=== PATIENT | female | born 1980 | race Caucasian/White ===

== ENCOUNTER → 2018-06-14 | Outpatient (CLI) | payer BC ==
--- NOTE | 2018-06-14 11:49 | Diagnostic Imaging Report ---
PROCEDURE: CT urinary tract, rule out kidney stone. TECHNIQUE: Multiple contiguous axial images were obtained through the abdomen and pelvis without the use of intravenous contrast. INDICATION: Left posterior pain and hematuria. COMPARISON: No prior studies are available for comparison. FINDINGS: The lung bases are clear. The liver and gallbladder are unremarkable. No biliary ductal dilatation is seen. The pancreas and spleen are unremarkable. No adrenal mass is detected. No renal calculi are seen. The left ureter is prominent and appears to contain a 4 mm calculus distally just proximal to the UVJ. Pelvic phleboliths are present as well. The right ureter is unremarkable. The small and large bowel loops are of normal caliber. The appendix is unremarkable. There is no ascites. The uterus is unremarkable. IMPRESSION: There is a 4 mm distal left ureteric calculus producing mild hydroureteronephrosis. No other significant abnormality is detected. Dictated by: Dictated on workstation # [id number]
== END ==
LOC: RAD 10:29
PROVIDERS: ATTEND Nurse Practitioner Family
DX: N13.2 Hydronephrosis with renal and ureteral calculous obstruction (principal)
CPT/HCPCS: 74176

== ENCOUNTER → 2018-06-20 | Outpatient (CLI) | payer BC ==
--- NOTE | 2018-06-20 17:19 | Diagnostic Imaging Report ---
INDICATION: Left ureteral calculus EXAM: KUB at 1:38 PM FINDINGS: There are several round calcifications in the pelvis that resemble phleboliths. There is 1 at the left ureterovesical junction that is less defined and could be a calculus. IMPRESSION: I suspect a small calculus at the left ureterovesical junction. The stone measures approximately 3 mm in diameter. Dictated by: Dictated on workstation # [id number]
== END ==
LOC: RAD 13:29
PROVIDERS: ATTEND Urology
DX: N20.1 Calculus of ureter (principal)
CPT/HCPCS: 74018

== ENCOUNTER → 2018-07-11 | Outpatient (CLI) | payer BC ==
--- NOTE | 2018-07-11 14:29 | Diagnostic Imaging Report ---
PROCEDURE: CT abdomen and pelvis without contrast. TECHNIQUE: Multiple contiguous axial images were obtained through the abdomen and pelvis without the use of intravenous contrast. Auto Exposure Controls were utilized during the CT exam to meet ALARA standards for radiation dose reduction. INDICATION: Left ureteral stone. CORRELATION STUDY: 06/14/2018 FINDINGS: LOWER THORAX: Clear. LIVER: Unremarkable. GALLBLADDER: Present and unremarkable. No bile duct dilatation. SPLEEN: Unremarkable. PANCREAS: Unremarkable. ADRENAL GLANDS: Unremarkable. KIDNEYS: There has been slight interval migration of the somewhat bilobed or perhaps two adjacent stones. These are now located at the ureterovesicular junction. Left renal collecting system is only very mildly prominent but without overt hydronephrosis at followup. The remainder of the left kidney as well as right kidney and collecting system are unremarkable. ABDOMINAL AORTA: Unremarkable, nonaneurysmal. GASTROINTESTINAL TRACT: Moderate severity fecal retention. Normal appendix. URINARY BLADDER: Unremarkable. REPRODUCTIVE: 3 cm low-density mass in the left ovary is present. Trace amount of pelvic fluid. OSSEOUS STRUCTURES: No acute abnormality. OTHER: None. IMPRESSION: 1. Slight interval migration of the distal left ureteral calculus now located at the left UVJ. No significant hydroureteronephrosis. 2. Development of a left ovarian cyst, 3 cm in size. Trace amount of pelvic fluid. Findings likely physiologic. Dictated by: Dictated on workstation # [id number]
== END ==
LOC: RAD 09:42
PROVIDERS: ATTEND Urology
DX: N20.1 Calculus of ureter (principal); N83.202 Unspecified ovarian cyst, left side
CPT/HCPCS: 74176

== ENCOUNTER 2018-07-17 06:27 | Outpatient (CLI) | payer BC ==
[~2018-07-17] VITALS: Ht 167.6 cm; Wt 74.8 kg
[2018-07-18] MEDS ORDERED: PHEN-640 PO (10:10)
[2018-07-18] MEDS ORDERED: NITR-65 PO (10:10)
[2018-07-18] MEDS ORDERED: TAMS0.4C98 PO (10:10)
== END 2018-07-17 11:55 | disposition home or self-care (01) ==
LOC: PREOP 06:27
PROVIDERS: ATTEND Urology
DX: Z01.818 Encounter for other preprocedural examination (principal)

== ENCOUNTER 2018-07-18 06:07 | Day surgery (SDC) | payer BC ==
[~2018-07-18] VITALS: Ht 167.6 cm; Wt 76.4 kg
[2018-07-18] MEDS ORDERED: cefTRIAXone FOR IV USE 1,000 MG in WATER (STERILE) FOR INJECTION 10 ML IV ONE (06:30)
[2018-07-18] MEDS: LACTATED RINGERS 1,000 ML IV PRN ×2 (06:35→07:53)
[2018-07-18 06:42] VITALS: BP 117/56
[2018-07-18] MEDS ORDERED: CATHETER FLUSH 10 ML SYR IV PRN (06:45)
[2018-07-18] MEDS ORDERED: proPOfol 200 MG/20 ML (DIPRIVAN) VIAL IV ONE (06:53)
[2018-07-18] MEDS ORDERED: fentaNYL INJECTION 100 MCG/2 ML AMP ONE (06:53)
[2018-07-18] MEDS ORDERED: ONDANSETRON 4 MG/2 ML (SDV) Z0FRAN ONE (06:53)
[2018-07-18] MEDS ORDERED: DEXAMETHASONE 10 MG/ML (DECADRON) 1 ML VIAL ONE (06:53)
[2018-07-18] MEDS ORDERED: LIDOCAINE PF 2% 5 ML (XYLOCAINE) VIAL ONE (06:53)
[2018-07-18] MEDS ORDERED: MIDAZOLAM 2 MG/2 ML (VERSED) VIAL ONE (06:54)
[2018-07-18] MEDS ORDERED: FUROSEMIDE 40 MG/4 ML INJ (LASIX) ONE (06:54)
[2018-07-18] MEDS ORDERED: KETOROLAC 30 MG/ML VIAL ONE (06:54)
[2018-07-18] MEDS ORDERED: SEVOFLURANE (ULTANE) 15 ML INHAL SOLN ONE (07:01)
--- NOTE | 2018-07-18 07:03 | Progress Note-Pre Operative ---
Pre-Operative Progress Note H&P Reviewed The H&P was reviewed, patient examined and no changes noted. Date Seen by Provider: Jul 18, 2018 Time Seen by Provider: 07:02 Date H&P Reviewed: Jul 18, 2018 Time H&P Reviewed: 07:02 Pre-Operative Diagnosis: LT DISTAL URETERAL STONE ANNMARIE DIXON MD Jul 18, 2018 07:02
--- NOTE | 2018-07-18 07:03 | Progress Note-Post Operative ---
Post-Operative Progess Note Surgeon (s)/Developing Machine Tender (s) Surgeon ANNMARIE DIXON MD Developing Machine Tender: NONE Pre-Operative Diagnosis LT DISTAL URETERAL STONE Post-Operative Diagnosis SAME Procedure & Operative Findings Date of Procedure 07/18/18 Procedure Performed/Findings LT URETEROSCOPY WITH STONE LITHOTRIPSY Anesthesia Type GENERAL Estimated Blood Loss Estimated blood loss (mL): NONE Specimens/Packing Specimens Removed NONE Packing: NONE ANNMARIE DIXON MD Jul 18, 2018 07:03
--- NOTE | 2018-07-18 07:05 | Discharge Inst-Urology ---
Discharge Inst-Urology Discharge Medications New, Converted, or Re-newed RX: RX on Chart Patient Instructions/Follow Up Plan Please make appointment to been seen in office in 2 weeks. KUB prior to it KUB on way home Post lithotripsy instructions Increase oral fluids for 48 hours and then as needed. Diet and Activity as tolerated. If questions or concerns contact your physician Or seek help at emergency department. ANNMARIE DIXON MD Jul 18, 2018 07:05
--- NOTE | 2018-07-18 07:42 | Diagnostic Imaging Report ---
INDICATION: Left ureteral stone. Supine view of the abdomen is obtained with comparison made study of 06/20/2018. FINDINGS: Overall bowel gas pattern is unremarkable. There is no evidence of calculus in the region of the kidneys. No definite ureteric stone is identified. Punctate calcifications are seen bilaterally in the pelvis similar to previous study which are likely due to phleboliths. IMPRESSION: No significant residual urinary tract calculus is identified. Dictated by: Dictated on workstation # [id number]
[2018-07-18] MEDS ORDERED: ROCURONIUM 10 MG/ML 5 ML SYRINGE IV ONE (07:47)
[2018-07-18] MEDS ORDERED: NEOSTIGMINE 1 MG/ML 5 ML SYRINGE ONE (08:03)
[2018-07-18] MEDS ORDERED: GLYCOPYRROLATE 0.2 MG/ML (ROBINUL) 2 ML VIAL ONE (08:03)
[2018-07-18] MEDS ORDERED: morphine INJ 10 MG/ML 1ML (SYR OR VIAL) IVP ONE (08:30)
[2018-07-18] MEDS ORDERED: ONDANSETRON 4 MG/2 ML (SDV) Z0FRAN IVP PRN (08:30)
[2018-07-18 09:05] VITALS: BP 103/62
[2018-07-18 09:35] VITALS: BP 111/69
[2018-07-18 10:05] VITALS: BP 109/54
[2018-07-18] MEDS ORDERED: PHEN-640 PO (10:10)
[2018-07-18] MEDS ORDERED: NITR-65 PO (10:10)
[2018-07-18] MEDS ORDERED: TAMS0.4C98 PO (10:10)
[2018-07-18 10:40] VITALS: BP 109/54
--- NOTE | 2018-07-18 11:18 | OPERATIVE REPORT ---
DATE OF SERVICE: 07/18/2018 PREOPERATIVE DIAGNOSIS: Left distal ureteral stone. POSTOPERATIVE DIAGNOSIS: Left distal ureteral stone. OPERATION PERFORMED: Left ureteroscopy with stone lithotripsy. SURGEON: Teddy Dixon MD. ANESTHESIA: General. COMPLICATIONS: None. DESCRIPTION OF PROCEDURE: Under satisfactory general anesthesia, the patient in the lithotomy position, genitalia were prepped and draped in the usual sterile fashion. Cystoscope was introduced in the bladder, which was essentially normal except for sluggish efflux from the left side. Using the foroblique lens, I dilated the left ureteral orifice intramural portion to a complete 6.9 [place] semi-rigid ureteroscope, visualized the stone and broke it up with the lithoclast. I went beyond the stone all the way up to the proximal ureter. There were no further stone or fragments present. I removed the ureteroscope and reinserted the cystoscope to empty the bladder. The patient tolerated the procedure and anesthesia well and was sent to the recovery room in stable condition. Job ID: [id number] DocumentID: [id number] Dictated Date: 07/18/2018 08:11:27 Delivery Room Supervisor Date: 07/18/2018 11:17:43 Dictated By: TEDDY DIXON MD
--- NOTE | 2018-07-18 11:45 | Diagnostic Imaging Report ---
EXAMINATION: Supine abdomen at 10:30h. INDICATION: Left ureteral stone The exam performed earlier today at 6:58 AM noted 4 small calcific densities overlying the pelvis. Those calcifications are again identified and no different. The CT abdomen/pelvis of 07/11/2018 did note a calcification at the uretero vesicle junction on the left. That calculus was visible on the prior exam of 06/20/2018 but is not clearly identified on this study. No other abnormalities are noted. There is a tampon air shadow now evident. IMPRESSION: The obstructive calculus at the ureterovesical junction on the left seen previously is not visualized on this study. There still appear to be a few phleboliths low in the pelvis. IMPRESSION: The obstructive calculus at the ureterovesical junction on the left seen on the prior exam is no longer visualized. Dictated by: Dictated on workstation # [id number]
== END 2018-07-18 10:45 | disposition home or self-care (01) ==
LOC: SDC 06:07
PROVIDERS: ATTEND Urology
DX: N20.1 Calculus of ureter (principal); Z87.891 Personal history of nicotine dependence
CPT/HCPCS: 74018; 84703; 87081